=== PATIENT | female | born 1985 | race Caucasian/White ===

== ENCOUNTER 2025-06-24 11:14 | Outpatient (CLI) | payer OTHER, SELFPAY ==
--- OUTSIDE RECORDS SUMMARY | 2024-09-30 07:55 | XMS_ITS ---
Author Organization [facility] Address [address] [place] [address] Care Team Providers Care Bow Stapler Name Role Phone Juanita Rock Primary Care Provider Elsie Mcdonald Unavailable Unavailable REASON FOR VISIT Urgent care Encounters Encounter Location Date [facility] [address] [facility] [place] [address] 09/30/2024 Elsie Mcdonald Headache, unspecifie d R51.9 ; Wheezing R06.2 ; Throat discomfort R07.0 ; Cough, unspecified R05.9 ; Facial pain R51.9 and Nasal congestion R09.81 Assessments Encounter Date Diagnosis (ICD Code) Assessment Notes Treatment Notes Treatment Clinical Notes Section Notes 09/30/2024 Headache, unspecified (ICD-10 - R51.9) 09/30/2024 Wheezing (ICD-10 - R06.2) 09/30/2024 Throat discomfort (ICD-10 - R07.0) 09/30/2024 Cough, unspecified (ICD-10 - R05.9) 09/30/2024 Facial pain (ICD-10 - R51.9) 09/30/2024 Nasal congestion (ICD-10 - R09.81) 09/30/2024 Other 1. Advised patient to come into the clinic for further evaluation and treatment for her symptoms as we are unable to do a complete examination via telehealth visit. Patient verbalized understanding and agreeable to plan. 2. Patient states she is unable to come into the clinic today. Advised pt to come into the clinic as soon as she can 3. ER precautions provided. Pt verbalized understanding and agreeable to plan. Plan Of Treatment Treatment Notes Assessment Notes Other 1. Advised patient to come into the clinic for further evaluation and treatment for her symptoms as we are unable to do a complete examination via telehealth visit. Patient verbalized understanding and agreeable to plan. 2. Patient states she is unable to come into the clinic today. Advised pt to come into the clinic as soon as she can 3. ER precautions provided. Pt verbalized understanding and agreeable to plan. Next Appt Details Follow Up: prn, Reason: Progress Notes * Nikia MEEKSDOB:1985 (39 yo F)Acc No.[id number]:09/30/2024 Patient: Nikia QUESADA Provider: Ken Mcdonald :1985 A ge:39 Y S ex:Female Date:09/30/2024 Address:[address] [place] [address] Pcp:Juanita Rock Subjective: * Chief Complaints: * 1 . Urgent care. * HPI: T ransition of Care: Pt is a 39 yo female here for evaluation and consultation via TeleMed phone visit. PMHx: Pt is a 39 yo female presenting with complaints of a cough that reyes after, nasal congestion, throat discomfort, and facial pain x 5 days. States it reyes after coughing and in her nose. Pt states she has yellow phlegm production with her cough. States she has clear fluid from her nose. Associated wheezing and headache which she rates a 1-2/10 and not the worst headache of her life. Pt states she has been taking Advil/Ibuprofen/Tylenol for her sxs. Denies fever, chills, nausea, vomiting, diarrhea, sob, chest pain. No allergies to medications. Patient is located in [place]. Patient participated in telehealth visit. This provider is part of the telehealth program and is conducting this visit in office or another appropriate site within [place]. For this visit, the provider and patient were present via interactive audio telecommunications system that permits real- time communication. Patient consent for telemedicine visit was obtained. Time spent reviewing labs & discussing treatment plan: 10-15 minutes. * ROS: G eneral / Constitutional: Patient complains of h eadache. E NT: Patient complains of n binu congestion, throat discomfort, facial pain. R espiratory: Patient complains of c ough, wheezing. C ardiovascular: Patient denies c hest pain, dizziness. G astrointestinal: Patient denies a bdominal pain, vomiting. * Medical History: Objective: * Vitals: * Examination: G eneral Examination: General appearance: S ounded well on the phone, Alert, No acute distress. . Lungs: N ormal efforts, Able to speak full sentences without coughing.. Assessment: * Assessment: 1. H eadache, unspecified - R51.9 (Primary) 2 . W heezing - R06.2 ? 3 . T hroat discomfort - R07.0 4 . C ough, unspecified - R05.9 ? 5 . F acial pain - R51.9 6 . N binu congestion - R09.81 Plan: * Treatment: * Follow Up: p rn * Billing Information: * Visit Code: 63805 Office Visit, New Pt., Level 3. Modifiers: GT * Procedure Codes: * Electronic signature of MANDY Lamb on 06/24/2025 at 11:20 AM CDT Sign off status: Pending * Provider: Ken Mcdonald Date: 1 12/01/2023 Generated for Jose nugent/Agnieszka/Michele on: 0 06/24/2025 11:20 AM CDT History and Physical Notes * HPI (History of Present Illness) Category Sub-Category Detail Notes Category Not es Transition of Care Pt is a 39 yo female here for evaluation and consultation via TeleMed phone visit. PMHx: Pt is a 39 yo female presenting with complaints of a cough that reyes after, nasal congestion, throat discomfort, and facial pain x 5 days. States it reyes after coughing and in her nose. Pt states she has yellow phlegm production with her cough. States she has clear fluid from her nose. Associated wheezing and headache which she rates a 1-2/10 and not the worst headache of her life. Pt states she has been taking Advil/Ibuprofen/Tylenol for her sxs. Denies fever, chills, nausea, vomiting, diarrhea, sob, chest pain. No allergies to medications. Patient is located in [place]. Patient participated in telehealth visit. This provider is part of the telehealth program and is conducting this visit in office or another appropriate site within [place]. For this visit, the provider and patient were present via interactive audio telecommunications system that permits real-time communication. Patient consent for telemedicine visit was obtained. Time spent reviewing labs & discussing treatment plan: 10-15 minutes. Examination Category Sub-Category Detail Notes Category Not es General Examination General appearance: Sounded well on the phone, Alert, No acute distress. Lungs: Normal efforts, Able to speak full sentences without coughing.
--- NOTE | ~2025-06-24 | MM_ITS ---
EXAMINATION: screening [facility] BI w mulugeta INDICATION: Asymptomatic, referred for screening mammogram COMPARISON: Baseline TECHNIQUE: Digital Breast Tomosynthesis CC, MLO views of Both breasts were obtained with computer-aided detection to assist in interpretation of the study. FINDINGS: There are scattered areas of fibroglandular density. There are 2 groups of microcalcifications in the inner at posterior third and lower inner at middle third respectively, both in the right breast . Elsewhere, there are no mammographic features of malignancy. IMPRESSION: 1. Right breast Incompletely characterized 2 groups of calcifications. 2. No evidence of malignancy in the Left breast. RECOMMENDATION: Right breast Diagnostic mammogram with true lateral, and appropriate magnification views. BI-RADS Category 0: Incomplete: Needs additional imaging evaluation. Reviewed, dictated and finalized at location B. IMPRESSION: 1. Right breast Incompletely characterized 2 groups of calcifications. 2. No evidence of malignancy in the Left breast. RECOMMENDATION: Right breast Diagnostic mammogram with true lateral, and appropriate magnificat ion views. BI-RADS Category 0: Incomplete: Needs additional imaging evaluation.
--- OUTSIDE RECORDS SUMMARY | 2025-06-24 11:20 | XMS_ITS | Encounter Summary ---
Author Organization [facility] Address [address] [place] [address] Care Team Providers Care Gifted Teacher Name Role Phone Rhonda Root NP Unavailable [phone] Rhonda Root NP Primary Care Provider [phone] Encounter Details Date Type Department Care Team (Late st Contact Info) Description 03/25/2025 [place] [employer] Message Enc [facility] Family Medicine - [place] [address] [place] [address] Rhonda Root NP [address] [place] [address] Cholesterol Social History Tobacco Use Types Packs/Day Years Used Date Smoking Tobacco: Never Passive Smoke Exposure: Past Smokeless Tobacco: Never Alcohol Use Standard Drinks/Week Comments Not Currently 1 (1 standard drink = 0.6 oz pur e alcohol) AUDIT-C Answer Date Recorded Frequency of Alcohol Consumption 2-4 times a fri10/22/2018 Average Number of Drinks Not on file 019 Frequency of Binge Drinking Not on file 10/06 PHQ-2 Answer Date Recorded Patient Health Questionnaire-2 Score 0 01/28/2025 Comments No Sex and Gender Information Value Date Recorded Sex Assigned at Female 12/24/2024 3:28 PM CDT Legal Sex Female 4:19 PM CDT Gender Identity Female 06/10/2025 9:59 AM CDT Sexual Orientation Not on file documented as of this encounter Progress Notes * Adriel Lang MA - 03/28/2025 9:58 AM CDT Nikia, She will definitely recommend an appointment to discuss these concerns. If you would like to give us call to discuss getting an appointment scheduled for this that would be great. We could even do a VV with the provider, and we do have openings today. Thank you, Suzanne documented in this encounter Plan of Treatment Not on file documented as of this encounter Visit Diagnoses Not on filedocumented in this encounter Additional Health Concerns Assessment Noted Time PHQ-9 Depression Total Score: 0 01/29/20 1:46 PM CDT documented as of this encounter Care Teams Gifted Teacher Relationship Specialty Start Date End Date Rhonda [place] [address] PCP - General NURSE PRACTITIONER 01/28/25 [place] [address] NURSE PRACTITIONER 01/28/25 documented as of this encounter
--- OUTSIDE RECORDS SUMMARY | 2025-06-24 11:20 | XMS_ITS | Clinical Summary ---
Author Organization [facility] [address] Address [address] [place] [address] Phone Care Team Providers Care Field Secretary Name Role Phone Xochitl Flores MD Primary Care Provider [phone] Allergies No known active allergies Medications VIT/FE FUMARATE/FA (CHARLIE ORAL) Take 1 Tab by mouth daily. Active ergocalciferol (VITAMIN D) 50,000 unit Oral capsule Take 1 Cap by mouth every 7 days. Active Family History Medical History Relation Name Comments Healthy Daughter Healthy Father Healthy Maternal Grandfather Diabetes Maternal Grandmother Hypertension Maternal Grandmother Healthy Mother Healthy Sister 1 Healthy Sister 2 Relation Name Status Comments Daughter Father Maternal Grandfather Maternal Grandmother Mother Sister 1 Sister 2 Social History Tobacco Use Types Packs/Day Years Used Date Smoking Tobacco: Never Smokeless Tobacco: Never Alcohol Use Standard Drinks/Week Comments No 0 (1 standard drink = 0.6 oz pur e alcohol) Comments Yes Sex and Gender Information Value Date Recorded Sex Assigned at Not on file Legal Sex Female 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 Gender Identity Not on file Sexual Orientation Not on file Occupation Industry Job Start Date Job End Date Not on file Not on file Not on file Not on file Plan of Treatment Health Maintenance Due Date Last Done Comments DTAP/TDAP/TD VACCINES (1 - Tdap) 2003 HEPATITIS B VACCINES (1 of 3 - 19+ 3-dose series) 07/07 HPV/Cotest (21-29) 2005 HPV VACCINES (1 - 3-dose SCDM series) 2011 CERVICAL CANCER SCREENING 2014 HPV/Cotest (30-65) 2014 PAP SMEAR 2014 BREAST CANCER SCREENING 2024 INFLUENZA VACCINE (#1) 2025 RSV VACCINE (60+ or ) (1 - 1-dose 75+ series) 2059 Insurance OPTIONS PPO [id number] [place] [address] Care Teams Field Secretary Relationship Specialty Start Date End Date Xochitl Flores MD PCP - General Family Practice 09/04/11
--- OUTSIDE RECORDS SUMMARY | 2025-06-24 11:20 | XMS_ITS | Clinical Summary ---
Author Organization [facility] Address [address] [place] [address] Care Team Providers Care Cs Associate Name Role Phone Rhonda Root SUPERVISOR FARM EQUIPMENT MAINTENANCE Unavailable [phone] DkWila NAI Primary Care Provider [phone] Allergies No known active allergies Medications NUVARING 0.12-0.015 MG/24HR RING INSERT 1 RING VAGINALLY Q MONTH UTD 3 9 Active Vitamin D3 (VITAMIN D) 50 mcg tablet Take 1 tablet (50 mcg total) by mouth daily. Active vitamin D2, ergocalciferol, (DRISDOL) 1.25 mg capsule Take 1 capsule (1.25 mg total) by mouth every 7 days. 5 Active multi vitamin/mineral s (THERA-M ENHANCED) tablet Take 1 tablet by mouth daily. Active triamcinolone (KENALOG) 0.1 % cream APPLY TO THE AFFECTED AREA TWICE DAILY FOR 2 WEEKS 5 Active Active Problems Problem Noted Date Diagnosed Date Encounter for routine adult health examination without abnormal findings 12/26/2024 Overview (12/26/2024): - vaccines: Needs: TDaP and Declines: Influenza and COVID - pap: Done by dialysis patient care technician, will request records. - mammogram: done with physician gynecologist, will request records - colon cancer screening: due at age 45 - DEXA: due at age 65 - RTC 1 yr, or sooner as needs arise Pes planus of both feet 12/24/2024 Overview (12/26/2024): - encouraged pt to try OTC arch supports, if not helping pain, will refer to podiatry for custom orthotics Iron deficiency anemia, unsp ecified iron deficiency anemia type 11/27/2018 Overview (11/27/2018): start iron supplement Hyperlipidemia, unspecified hyperlipidemia type 11/27/2018 Overview (12/26/2024): - was taking lipitor 20 but has since stopped - will obtain lipid panel to assess risk Anxiety 10/22/2018 Resolved Problems Problem Noted Date Diagnosed Date Resolved Date Elevated BUN 11/27/2018 09/27/2020 Overview (11/27/2018): repeat CMP today Upper respiratory tract infe ction, unspecified type 11/27/2018 09/27/2020 Overview (11/27/2018): increae fluids claritin per label salt water gargles follwo up if no improvement in the next 5-7 days or if worsens Encounters Date Type Department Care Team Description 06/10/2025 3:40 PM CDT Telemedicine [address] [address] Rhonda Root NP Hyperlipidemia (Would like to discuss starting medication for cholesterol lab draw was done 03/18/25) 03/25/2025 MyChart Message Enc [address] [address] Rhonda Root NP Cholesterol 03/25/2025 Results Follow-Up [address] [address] Rhonda Root NP LIPID PANEL from Last 3 Months Immunizations Immunization Administration Dates Next Due MODERNA COVID-19 (12+) MRNA, LNP-S, PF, 100 MCG/ 0.5 ML DOSE 11/24/2020,10/27/2020 Family History Medical History Relation Comments Stroke Maternal Aunt Arthritis Maternal Grandmother Cancer Maternal Grandmother Diabetes Maternal Grandmother Heart Disease Maternal Grandmother Hyperlipidemia Maternal Grandmother Hypertension Maternal Grandmother Alcohol Abuse Mother Depression Mother Hyperlipidemia Mother Hypertension Mother Cancer Paternal Grandmother Miscarriages / Stillbirths Sister Retardation/Learning Difficulties Sister Asthma Son Relation Status Comments Maternal Aunt Maternal Grandmother Mother Paternal Grandmother Sister Son Social History Tobacco Use Types Packs/Day Years Used Date Smoking Tobacco: Never Passive Smoke Exposure: Past Smokeless Tobacco: Never Tobacco Cessation:Counseling Given: No Alcohol Use Standard Drinks/Week Comments Not Currently [...] AM CDT Sexual Orientation Not on file Last Filed Vital Signs Vital Sign Reading Time Taken Comments Blood Pressure 108/48 01/28/2025 1:51 PM CDT Pulse 88 01/28/2025 1:40 PM CDT Temperature 36.7 C (98.1 F) 01/28/2025 1:40 PM CDT Respiratory Rate 12 12/24/2024 3:28 PM CDT Oxygen Saturation 97% 01/28/2025 1:40 PM CDT Inhaled Oxygen Concentration - - Weight 88.6 kg (195 lb 4.8 oz) 01/28/2025 1:40 P M CDT Height 165.5 cm (5' 5.16) 01/28/2025 1:40 PM CD T Body Mass Index 32.34 01/28/2025 1:40 PM CDT Plan of Treatment Health Maintenance Due Date Last Done Comments Hepatitis C 2002 DTaP, Tdap and Td Vaccines ( 1 - Tdap) 2003 Hepatitis B Vaccines (1 of 3 - 19+ 3-dose series) 2003 HPV Vaccines (1 - 3-dose SCD M series) 2011 Cervical Cancer Screening Kam dash with HPV Testing (Age 30 to 64) Every 5 Years 2014 Cervical Cancer Screening Pa p Smear (Age 30 to 64) Every 3 Years 09/27/2024 09/27/2021 COVID-19 Vaccine (2024-2 6 season) 2025 08/29/2021, 11/24/2020, 10/27/2020 Mammogram Screening 08/26/2025 Postpone d from 2024 (Awaiting Documentation) Annual Physical 12/24/2025 12/24/2024, 10/22/2018 Cervical Cancer Screening with HPV 12/24/2025 Postponed from 09/27 (Going to Outside Clinic) PHQ-2 (Physician [place]) Completed 01/28/2025 Meningococcal B Vaccine Aged Out No l onger eligible based on patient's age to complete this topic Meningococcal Vaccine Aged Out No pee hanh eligible based on patient's age to complete this topic Pneumococcal Vaccine: Pediatrics (0 to 5 Years) and At-Risk Patients (6 to 49 Years) Aged Out No longer eligible b ased on patient's age to complete this topic RSV Immunizations Under 20 Months Aged Out No longer eligible b ased on patient's age to complete this topic Procedures Procedure Name Priority Date/Time Associated Diagnosis Comments OUTSIDE CYTOPATH CERV/VAG INTERPRET (PAP) (SCAN ORDER) 09/27/2021 from Last 3 Months or Most Recently Relevant to Health Maintenance Results * PAP SMEAR (09/27/2021) 09/27/2021 Narrative 09/27/2021 Ordered by an unspecified provider. us Documents Scanned SCANNING Final Result from Last 3 Months or Most Recently Relevant to Health Maintenance Insurance [facility] Care Teams Cs Associate Relationship Specialty Start Date End Date Rhonda Root NP [address] [facility] [place] [id number] PCP - General NURSE PRACTITIONER 01/28/25 Rhonda Root [place] [address] NURSE PRACTITIONER 01/28/25
--- OUTSIDE RECORDS SUMMARY | 2025-06-24 11:20 | XMS_ITS | Patient Health Record ---
Author Organization [facility] Address [address] [place] [address] Care Team Providers Care Die Casting Supervisor Name Role Phone Juanita Rock Primary Care Provider [phone] Elsie Mcdonald Unavailable Unavailable Reason For Referral No Information Encounters Encounter Location Date Provider Diagnosis 2 [facility] [address] [facility] [place] [address] 09/30/2024 Elsiearturo Mcdonald Headache, unspecifie d R51.9 ; Wheezing R06.2 ; Throat discomfort R07.0 ; Cough, unspecified R05.9 ; Facial pain R51.9 and Nasal congestion R09.81 Assessments Encounter Date Diagnosis (ICD Code) Assessment Notes Treatment Notes Treatment Clinical Notes Section Notes 09/30/2024 Wheezing (ICD-10 - R06.2) 09/30/2024 Headache, unspecified (ICD-10 - R51.9) 09/30/2024 Throat discomfort (ICD-10 - R07.0) 09/30/2024 [...] and agreeable to plan. Plan Of Treatment No Information Insurance Providers Payer Name Payer Address Payer Phone Subscriber Number Group Number Insured Name Patient Relationship to Insured Coverage Start Date Coverage End Date [facility] [address] [place] [id number] [phone] [id number] Nikia Meeks Self - patient is the insured
== END 2025-06-24 11:15 | disposition home or self-care (01) ==
LOC: ANHFOHIMG 11:18
PROVIDERS: Visit Provider Nurse Practitioner
DX: Z12.31 Encounter for screening mammogram for malignant neoplasm of breast (principal); R92.8 Other abnormal and inconclusive findings on diagnostic imaging of breast
CPT/HCPCS: 77063; 77067

== ENCOUNTER 2025-08-05 10:13 | Outpatient (CLI) | payer OTHER, SELFPAY ==
--- OUTSIDE RECORDS SUMMARY | 2024-09-30 07:55 | XMS_ITS ---
Author Organization [facility] Address [address] [place] [address] Care Team Providers Care International Manager Name Role Phone Juanita Rock Primary Care Provider [phone] Elsie Mcdonald Unavailable Unavailable REASON FOR VISIT Urgent care Encounters Encounter Location Date [facility] [address] [facility] [place] [address] 09/30/2024 Elsie Mcdonald Headache, unspecifie d R51.9 [...] prn, Reason: Progress Notes * Nikia MEEKSDOB:1985 (40 yo F)Acc No.[id number]:09/30/2024 Patient: Nikia QUESADA Provider: Ken Mcdonald :1985 A ge:39 Y S ex:Female Date:09/30/2024 Address:[address] [place] [address] Pcp:Juanita Rock Subjective: * Chief Complaints: * [...] allergies to medications. Patient is located in [place]. Patient participated in telehealth visit. This provider is part of the telehealth program and is conducting this visit in office or another appropriate site within [place]. For this visit, the provider and patient [...] rn * Billing Information: * Visit Code: 17377 Office Visit, New Pt., Level 3. Modifiers: GT * Procedure Codes: * Electronic signature of MANDY Lamb on 08/05/2025 at 10:45 AM CDT Sign off status: Pending * Provider: Ken Mcdonald Date: 12/01/2023 Generated for Jose nugent/Agnieszka/Michele on: 10:45 AM CDT History and Physical Notes * [...] allergies to medications. Patient is located in [place]. Patient participated in telehealth visit. This provider is part of the telehealth program and is conducting this visit in office or another appropriate site within [place]. For this visit, the provider and patient [...]
--- NOTE | ~2025-08-05 | MM_ITS ---
EXAMINATION: MM diagnostic henrry RT w mulugeta HISTORY: Extensive right breast calcifications. TECHNIQUE: Additional 3-D tomosynthesis images of the right breast were performed and synthetic 2-D images were generated. CAD analysis was submitted and interpreted. COMPARISON: Mammogram dated 06/24/2025 BREAST PARENCHYMAL COMPOSITION: Dense: The breasts are heterogeneously dense, which may obscure small masses FINDINGS: There are clustered pleomorphic calcifications with groups in the lower inner quadrant, anterior-middle depth in the upper inner quadrant, posterior depth. No suspicious masses or architectural distortion. IMPRESSION: 1. Two separate clusters of left breast calcifications. 2. Stereotactic biopsy of each of these locations recommended. BI-RADS CATEGORY 4-SUSPICIOUS ABNORMALITY Reviewed, dictated and finalized at location B.
--- OUTSIDE RECORDS SUMMARY | 2025-08-05 10:45 | XMS_ITS | Clinical Summary ---
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
--- OUTSIDE RECORDS SUMMARY | 2025-08-05 10:45 | XMS_ITS | Patient Health Record ---
Author Organization [facility] Address [address] [place] [address] Care Team Providers Care Stem Threshing Machine Operator Name Role Phone Juanita Rock Primary Care Provider Elsie Mcdonald Unavailable Unavailable Reason For Referral No Information Encounters Encounter Location Date Provider Diagnosis 2 [facility] [employer] [facility] [address] [facility] [place] [address] 09/30/2024 Elsiearturo Mcdonald Headache, unspecifie d R51.9 [...] Insured Coverage Start Date Coverage End Date [facility] [address] [place] [employer] [id number] Nikia Meeks Self - patient is the insured
== END 2025-08-05 10:14 | disposition home or self-care (01) ==
LOC: ANHFOHIMG 10:15
PROVIDERS: Visit Provider Obstetrics & Gynecology Gynecology
DX: R92.1 Mammographic calcification found on diagnostic imaging of breast (principal); R92.8 Other abnormal and inconclusive findings on diagnostic imaging of breast
CPT/HCPCS: 77061; 77065; G0279

== ENCOUNTER 2025-08-25 07:48 | Outpatient (CLI) | payer OTHER, SELFPAY ==
--- NOTE | ~2025-08-25 | MM_ITS ---
AutoText: MM stereotactic bx RT, MM stereotactic specimen RT, MM stereotactic bx RT add, MM stereotactic specimen RT CLINICAL HISTORY: 40-year-old female with 2 separate clusters of suspicious pleomorphic calcifications located in the lower inner at anterior depth and upper inner at posterior depth respectively, who presents for stereotactic core needle biopsy of both groups of calcifications. PROCEDURE: Stereotactic breast biopsy. The patient was brought into the stereotactic suite. A time-out procedure was performed. Preliminary images of the right breast were obtained to localize the calcifications. The area was then prepped and draped in the usual sterile fashion. 1% lidocaine was administered to the superficial soft tissues and 1% lidocaine with epinephrine was administered to the deeper soft tissues for local anesthesia. A jayjay was made in the skin and the 9 gauge Mammotome biopsy needle was inserted through the jayjay and localized to the calcifications in the upper inner at posterior depth with confirmation by mammography. Multiple biopsy specimens were obtained. Images of the biopsy specimens demonstrate numerous cedric cifications corresponding with the suspicious calcifications seen on the mammogram. A Orange Baldev butterfly marker was placed in the biopsy site at the end of the procedure. Pressure was held at the site of biopsy and entry site for the needle until hemostasis was achieved. A jayjay was made in the skin and the 9 gauge Mammotome biopsy needle was inserted through the jayjay and localized to the calcifications in the lower inner at anterior depth with confirmation by mammography. Multiple biopsy specimens were obtained. Images of the biopsy specimens demonstrate numerous calcifications corresponding with the suspicious calcifications seen on the mammogram. A Orange Baldev coil marker was placed in the biopsy site at the end of the procedure. Pressure was held at the site of biopsy and entry site for the needle until hemostasis was achieved. The patient tolerated the procedure well with no immediate post procedure complications. The biopsy specimens were sent to pathology for evaluation. Mammograms of the right breast in the craniocaudal and true lateral projections demonstrate the microclips in the biopsy site. The biopsy clip in the upper inner posterior lesion appears to have migrated medially. IMPRESSION: Technically successful stereotactic biopsy of right breast 2 groups of suspicious calcifications. There is suggestion of medial migration of the butterfly biopsy marker placed in the upper inner lesion at posterior depth. The patient tolerated the procedure well with no immediate post procedure complications. Pathology report is pending. Reviewed, dictated and finalized at location [facility] IMPRESSION: Technically successful stereotactic biopsy of right breast 2 groups of suspicious calcifications. There is suggestion of medial migration of the b utterfly biopsy marker placed in the upper inner lesion at posterior depth. The patient tolerated the procedure well with no immediate post procedure complica tions. Pathology report is pending. IMPRESSION: Technically successful stereotactic biopsy of right breast 2 groups of suspicious calcifications. There is suggestion of medial migration of the b utterfly biopsy marker placed in the upper inner lesion at posterior depth. The patient tolerated the procedure well with no immediate post procedure complica tions. Pathology report is pending. IMPRESSION: Technically successful stereotactic biopsy of right breast 2 groups of suspicious calcifications. There is suggestion of medial migration of the b utterfly biopsy marker placed in the upper inner lesion at posterior depth. The patient tolerated the procedure well with no immediate post procedure complica tions. Pathology report is pending.
--- NOTE | 2025-08-25 10:20 | S_PTH ---
PATIENT: Nikia Meeks LOC: [facility] U#:[id number] AGE/SX: 40/F ROOM: RE08/25/[address]: Myriam Mcdaniel MD : 1985 BED: DIS: 08/25/2025 SPEC #: [id number] RECD: 08/25/25 13:33 STATUS: WILLIAM RERomana #: [id number] LASHON: 08/25/25 10:[address]: Myriam Mcdaniel DEPT: [facility] Surgical RECD BY: Thao Lan ENTERED: 08/25/25 13:38 SP TYPE: Surgical OTHR DR: PHYSICIAN NOT ON STAFF Tissues: A - Breast Biopsy B - Breast Biopsy C - Breast Biopsy D - Breast Biopsy E - Breast Biopsy F - Breast Biopsy G - Breast Biopsy H - Breast Biopsy I - Breast Biopsy J - Breast Biopsy K - Breast Biopsy L - Breast Biopsy M - Breast Biopsy N - Breast Biopsy O - Breast Biopsy P - Breast Biopsy Q - Breast Biopsy R - Breast Biopsy S - Breast Biopsy T - Breast Biopsy U - Breast Biopsy V - Breast Biopsy W - Breast Biopsy X - Breast Biopsy Procedures: P63 Hematoxylin and Eosin Stain Gross and Microscopic Level 4 ER-60 VT-60 MIB-60 HER 2-60 CK 5
== END 2025-08-25 07:49 | disposition home or self-care (01) ==
PROVIDERS: Visit Provider Surgery
DX: R92.8 Other abnormal and inconclusive findings on diagnostic imaging of breast (principal); D05.11 Intraductal carcinoma in situ of right breast
CPT/HCPCS: 19081; 19082; 88305; 88342; 88360